=== PATIENT | female | born 1950 | race Caucasian/White ===

== ENCOUNTER 2024-01-11 06:42 | Inpatient (IN) | payer MEDICARE ==
[~2024-01-11] VITALS: Ht 165.1 cm; Wt 132.6 kg
[2024-01-11 08:03] LABS: DIFFERENTIAL COMMENT 1; HEMATOCRIT. 44.8 % (36.0-48.0); HEMOGLOBIN. 14.1 g/dL (12.0-16.0); MEAN CORPUSCULAR HEMOGLOBIN 27.4 pg (28.0-32.0); MEAN CORPUSCULAR HGB CONC 31.5 g/dL (31.0-37.0); MEAN CORPUSCULAR VOLUME 86.9 fL (81.0-99.0); MEAN PLATELET VOLUME 7.1 fl (7.4-10.4); PLATELET 364 x1000/uL (130-400); RED BLOOD CELL COUNT 5.16 mill/uL (4.2-5.4); RED CELL DISTRIBUTION WIDTH 16.7 % (11.6-14.6); WHITE BLOOD COUNT 20.7 x1000/uL (4.5-11.0)
[2024-01-11] MEDS: METOCLOPRAMIDE HCL 10MG/2ML VIAL IV ONE (08:06)
[2024-01-11 08:11] LABS: CHLORIDE 106 mEq/L (98-107); POTASSIUM 3.7 mEq/L (3.5-5.1); SODIUM 140 mEq/L (136-145)
[2024-01-11 08:12] LABS: CALCIUM 9.2 mg/dL (8.7-10.4); CARBON DIOXIDE 25 mEq/L (21-32)
[2024-01-11 08:17] LABS: CREATININE 1.4 mg/dL (0.6-1.0); GLUCOSE 229 mg/dL (70-105); TROPONIN I HIGH SENSITIVITY 17 ng/L (3.0-34); UREA NITROGEN BLOOD 20 mg/dL (9-23)
[2024-01-11 08:19] LABS: ALANINE AMINOTRANSFERASE 15 IU/L (10-49); ALBUMIN 4.3 g/dL (3.2-4.8); ASPARTATE AMINOTRANSFERASE 16 IU/L (<34); BILIRUBIN DIRECT 0.2 mg/dL (<=3.0); BILIRUBIN TOTAL 0.5 mg/dL (0.1-1.0)
[2024-01-11 08:20] LABS: PROTEIN TOTAL 7.4 g/dL (6.0-8.3)
[2024-01-11] MEDS: PIPERACILLIN/TAZO 3.375G/50ML 50 ML IV STA (10:16)
[2024-01-11] MEDS: SODIUM CHLORIDE 0.9% 500 ML IV ONE (10:16)
[2024-01-11] MEDS: ACETAMINOPHEN 325MG TABLET PO ONE (10:17)
[2024-01-11] MEDS: LABETALOL 5MG/ML 4ML INJ IV ONE (10:30)
[2024-01-11 10:41] LABS: ANISOCYTOSIS 1+; PLATELET ESTIMATE NORMAL
[2024-01-11 10:49] LABS: LACTIC ACID 2.2 mmol/L (0.4-2.0)
[2024-01-11] MEDS: VANCOMYCIN 1.5GM/250ML 250 ML IV SCH (11:04)
[2024-01-11 12:00] VITALS: BP 108/44; PULSE 93; RESP 18; TEMP 97.9
[2024-01-11 12:03] VITALS: BP 108/44; PULSE 93; RESP 18; TEMP 97.9
[2024-01-11] MEDS ORDERED: CLON0.1T MT (12:08)
[2024-01-11] MEDS ORDERED: CLOP-31 MT (12:08)
[2024-01-11] MEDS ORDERED: FURO40TA5 MT (12:08)
[2024-01-11] MEDS ORDERED: LEVVL SQ (12:08)
[2024-01-11] MEDS ORDERED: LOSA100T33 MT (12:08)
[2024-01-11] MEDS ORDERED: GABA-532 MT (12:08)
[2024-01-11] MEDS ORDERED: METO100T16 MT (12:08)
[2024-01-11] MEDS ORDERED: IPRATROPIUM/ALBUTEROL 0.5-3(2.5)MG/3ML NEB NEB PRN (13:30)
[2024-01-11] MEDS ORDERED: ACETAMINOPHEN 325MG TABLET PO PRN (13:30)
[2024-01-11] MEDS ORDERED: MAGNESIUM/ALUMINUM HYDROXIDE/SIMETHICONE 30ML UDC PO PRN (13:30)
[2024-01-11 13:39] LABS: HEPATITIS B SURFACE ANTIGEN NEGATIVE (Negative)
[2024-01-11 14:00] LABS: HEPATITIS C AB NON REACTIVE (Neg) (Negative)
[2024-01-11] MEDS: CEFTRIAXONE 1GM/50ML 50 ML IV SCH (15:17)
[2024-01-11] MEDS: ACETAMINOPHEN 325MG TABLET PO PRN (15:17)
[2024-01-11] MEDS: SODIUM CHLORIDE 0.9% 1,000 ML IV SCH (15:18)
[2024-01-11] MEDS: AZITHROMYCIN 500 MG TABLET PO SCH (15:18)
[2024-01-11] MEDS: ENOXAPARIN 40MG/0.4ML SYR SUBCUT SCH (15:19)
[2024-01-11 15:46] VITALS: BP 128/68; PULSE 103; RESP 20; TEMP 98.3
[2024-01-11] MEDS ORDERED: DEXTROSE 50% WATER 50ML SYRINGE IV PRN (16:15)
[2024-01-11] MEDS: BLOOD SUGAR DIAGNOSTIC STRIP TEST SCH (18:03)
[2024-01-11 20:00] VITALS: BP_SYST 116; BP_SYST 121; BP_DIAS 54; BP_DIAS 69; PULSE 103; PULSE 105; RESP 16; RESP 18; TEMP 98.5; TEMP 98.6
[2024-01-11] MEDS: INSULIN LISPRO 100 UNITS/ML SUBCUT SCH (21:28)
[2024-01-11] MEDS: INSULIN GLARGINE 100 UNITS/ML SUBCUT SCH (21:31)
[2024-01-12] VITALS: BP 121/69; PULSE 103; RESP 16; TEMP 98.5
[2024-01-12 04:00] VITALS: BP 130/60; PULSE 94; RESP 18; TEMP 98
[2024-01-12 07:09] LABS: HEMATOCRIT. 37.4 % (36.0-48.0); MEAN CORPUSCULAR HEMOGLOBIN 27.5 pg (28.0-32.0); MEAN CORPUSCULAR HGB CONC 32.1 g/dL (31.0-37.0); MEAN CORPUSCULAR VOLUME 85.8 fL (81.0-99.0); MEAN PLATELET VOLUME 7.6 fl (7.4-10.4); PLATELET 353 x1000/uL (130-400); RED BLOOD CELL COUNT 4.36 mill/uL (4.2-5.4); RED CELL DISTRIBUTION WIDTH 16.5 % (11.6-14.6); WHITE BLOOD COUNT 18.3 x1000/uL (4.5-11.0)
[2024-01-12 07:21] LABS: CARBON DIOXIDE 28 mEq/L (21-32); CHLORIDE 104 mEq/L (98-107); POTASSIUM 3.9 mEq/L (3.5-5.1); SODIUM 140 mEq/L (136-145)
[2024-01-12 07:22] LABS: CALCIUM 8.4 mg/dL (8.7-10.4)
[2024-01-12 07:26] LABS: GLUCOSE 148 mg/dL (70-105)
[2024-01-12 07:27] LABS: UREA NITROGEN BLOOD 31 mg/dL (9-23)
[2024-01-12 07:29] LABS: PHOSPHORUS 2.7 mg/dL (2.5-4.9)
[2024-01-12 07:32] LABS: CREATININE 2.1 mg/dL (0.6-1.0)
[2024-01-12 07:38] LABS: DIFFERENTIAL COMMENT 1
[2024-01-12 08:00] VITALS: BP 160/70; PULSE 98; RESP 20; TEMP 98
[2024-01-12] MEDS ORDERED: LIDOCAINE HCL 1% 10 MG/ML 10ML VIAL ONE (09:55)
[2024-01-12 14:42] LABS: PLATELET ESTIMATE NORMAL
[2024-01-12] MEDS: ONDANSETRON HCL 4MG/2ML INJ IV PRN (15:16)
[2024-01-12 16:00] VITALS: BP 149/69; PULSE 89; RESP 18; TEMP 98.2
[2024-01-12 20:00] VITALS: BP 136/48; PULSE 92; RESP 18; TEMP 99.9
[2024-01-13] VITALS: BP 152/74; PULSE 96; RESP 18; TEMP 98.1
[2024-01-13 04:00] VITALS: BP 150/63; PULSE 90; RESP 17; TEMP 97.6
[2024-01-13 07:33] LABS: HEMATOCRIT. 34.7 % (36.0-48.0); HEMOGLOBIN. 11.3 g/dL (12.0-16.0); MEAN CORPUSCULAR HEMOGLOBIN 27.4 pg (28.0-32.0); MEAN CORPUSCULAR HGB CONC 32.5 g/dL (31.0-37.0); MEAN CORPUSCULAR VOLUME 84.4 fL (81.0-99.0); MEAN PLATELET VOLUME 7.7 fl (7.4-10.4); PLATELET 293 x1000/uL (130-400); RED BLOOD CELL COUNT 4.11 mill/uL (4.2-5.4); RED CELL DISTRIBUTION WIDTH 16.4 % (11.6-14.6); WHITE BLOOD COUNT 16.5 x1000/uL (4.5-11.0)
[2024-01-13 07:41] LABS: CREATININE 1.9 mg/dL (0.6-1.0)
[2024-01-13 07:55] LABS: DIFFERENTIAL COMMENT 1
[2024-01-13 08:00] VITALS: BP 141/58; PULSE 95; RESP 18; TEMP 97.5
[2024-01-13 11:55] LABS: ANISOCYTOSIS 1+; PLATELET ESTIMATE NORMAL
[2024-01-13 12:00] VITALS: BP 148/58; PULSE 79; RESP 18; TEMP 97.1
[2024-01-13] MEDS: ENOXAPARIN 40MG/0.4ML SYR SUBCUT SCH (12:19)
[2024-01-13 16:00] VITALS: BP 138/85; PULSE 105; RESP 18; TEMP 97
[2024-01-13 17:51] LABS: CLARITY URINE CLOUDY (CLEAR); COLOR URINE YELLOW (YELLOW); GLUCOSE URINE NEGATIVE (NEGATIVE); KETONES URINE NEGATIVE (NEGATIVE); LEUKOCYTE ESTERASE URINE NEGATIVE (NEGATIVE); NITRITE URINE NEGATIVE (NEGATIVE); OCCULT BLOOD URINE 1+ (NEGATIVE); PH URINE 5.5 (4.5-8.0); PROTEIN URINE 2+ (NEGATIVE); SPECIFIC GRAVITY URINE 1.018 (1.005-1.030); UROBILINOGEN URINE 0.2 E.U./dL (0.2-1.0)
[2024-01-13 17:59] LABS: CREATININE URINE RANDOM 174.9 mg/dL
[2024-01-13] MEDS ORDERED: SODIUM CHLORIDE 10% FOR INH 15ML NEB INH SCH (18:00)
[2024-01-13 18:10] LABS: BACTERIA URINE 2+; RBC URINE 0-2 /hpf (0-2); SQUAMOUS EPITHELIAL CELL URINE 2+ /lpf (RARE/1+)
[2024-01-13 18:11] LABS: YEAST URINE 1+
[2024-01-13 20:00] VITALS: BP 133/55; PULSE 87; RESP 18; TEMP 97.7
[2024-01-13] MEDS: VANCOMYCIN 1G PREMIX 200 ML IV NR (20:50)
[2024-01-13] MEDS ORDERED: DOXYCYCLINE HYCLATE 100MG CAPSULE PO SCH (21:00)
[2024-01-13] MEDS: METRONIDAZOLE 500MG TABLET PO SCH (21:18)
[2024-01-14] VITALS (7 sets, daily range): BP systolic 122–150; BP diastolic 55–78; PULSE 78–89; RESP 18; TEMP 97–97.8
[2024-01-14] MEDS ORDERED: NALOXONE HCL 0.4MG/ML VIAL IV PRN (03:15)
[2024-01-14] MEDS: HYDROCODONE/ACETAMINOPHEN 5/325MG TABLET PO PRN (06:08)
[2024-01-14 06:24] LABS: HEMATOCRIT. 36.1 % (36.0-48.0); HEMOGLOBIN. 11.2 g/dL (12.0-16.0); MEAN CORPUSCULAR HEMOGLOBIN 26.9 pg (28.0-32.0); MEAN CORPUSCULAR HGB CONC 31.1 g/dL (31.0-37.0); MEAN CORPUSCULAR VOLUME 86.6 fL (81.0-99.0); MEAN PLATELET VOLUME 7.5 fl (7.4-10.4); PLATELET 254 x1000/uL (130-400); RED BLOOD CELL COUNT 4.17 mill/uL (4.2-5.4); RED CELL DISTRIBUTION WIDTH 16.4 % (11.6-14.6); WHITE BLOOD COUNT 13.1 x1000/uL (4.5-11.0)
[2024-01-14 06:41] LABS: CALCIUM 8.5 mg/dL (8.7-10.4)
[2024-01-14 07:33] LABS: DIFFERENTIAL COMMENT 1
[2024-01-14] MEDS: SODIUM CHLORIDE 0.9% 1,000 ML IV SCH (08:06)
[2024-01-14] MEDS: VANCOMYCIN 1.5GM/250ML IV NR (09:46)
[2024-01-14 10:38] LABS: PLATELET ESTIMATE NORMAL
[2024-01-14] MEDS: SODIUM CHLORIDE 0.45% 1,000 ML IV SCH (14:28)
[2024-01-14] MEDS ORDERED: MAGNESIUM/ALUMINUM HYDROXIDE/SIMETHICONE 30ML UDC PO PRN (16:15)
[2024-01-14] MEDS ORDERED: FAMOTIDINE 20MG/2ML VIAL IV SCH (21:00)
[2024-01-14] MEDS: FAMOTIDINE 20MG/2ML VIAL IV SCH (21:53)
[2024-01-14] MEDS: IPRATROPIUM/ALBUTEROL 0.5-3(2.5)MG/3ML NEB NEB SCH (22:12)
[2024-01-15] VITALS (10 sets, daily range): BP systolic 130–173; BP diastolic 63–86; PULSE 73–91; RESP 18–22; TEMP 97.4–99.1
[2024-01-15] MEDS: CLONIDINE 0.1MG TABLET PO PRN (00:30)
[2024-01-15 06:19] LABS: POTASSIUM 4.1 mEq/L (3.5-5.1)
[2024-01-15 06:20] LABS: HEMATOCRIT. 34.5 % (36.0-48.0); MEAN CORPUSCULAR HEMOGLOBIN 27.2 pg (28.0-32.0); MEAN CORPUSCULAR HGB CONC 31.8 g/dL (31.0-37.0); MEAN CORPUSCULAR VOLUME 85.4 fL (81.0-99.0); MEAN PLATELET VOLUME 7.9 fl (7.4-10.4); PLATELET 282 x1000/uL (130-400); RED BLOOD CELL COUNT 4.04 mill/uL (4.2-5.4); RED CELL DISTRIBUTION WIDTH 16.6 % (11.6-14.6); WHITE BLOOD COUNT 9.7 x1000/uL (4.5-11.0)
[2024-01-15 06:21] LABS: CALCIUM 8.7 mg/dL (8.7-10.4)
[2024-01-15 06:25] LABS: CREATININE 1.7 mg/dL (0.6-1.0)
[2024-01-15 06:34] LABS: DIFFERENTIAL COMMENT 1
[2024-01-15 11:21] LABS: ANISOCYTOSIS 1+; PLATELET ESTIMATE NORMAL
[2024-01-15] MEDS: VANCOMYCIN 1.5GM/250ML IV NR (14:12)
[2024-01-15] MEDS: FLUCONAZOLE 150MG TABLET PO SCH (16:06)
[2024-01-15] MEDS: FLUTICASONE/VILANTEROL 200-25 BLST.W.DEV ORI SCH (17:07)
[2024-01-16] VITALS (7 sets, daily range): BP systolic 129–156; BP diastolic 46–156; PULSE 78–92; RESP 18–20; TEMP 97.7–99.5; O2SAT 69
[2024-01-16 07:17] LABS: CALCIUM 9.5 mg/dL (8.7-10.4)
[2024-01-16 07:22] LABS: CREATININE 1.6 mg/dL (0.6-1.0)
[2024-01-16 07:45] LABS: EOSINOPHILS % 2.3 % (0.0-5.0); HEMATOCRIT. 36.3 % (36.0-48.0); HEMOGLOBIN. 11.5 g/dL (12.0-16.0); LYMPHOCYTES % 8.2 % (20.0-50.0); MEAN CORPUSCULAR HEMOGLOBIN 27.1 pg (28.0-32.0); MEAN CORPUSCULAR HGB CONC 31.6 g/dL (31.0-37.0); MEAN CORPUSCULAR VOLUME 85.9 fL (81.0-99.0); MONOCYTES % 6.3 % (2.0-8.0); NEUTROPHILS % 82.2 % (40.0-76.0); RED BLOOD CELL COUNT 4.23 mill/uL (4.2-5.4); RED CELL DISTRIBUTION WIDTH 16.6 % (11.6-14.6)
[2024-01-16 07:57] LABS: DIFFERENTIAL COMMENT 1
[2024-01-16] MEDS ORDERED: FLUC150T46 PO (10:16)
[2024-01-16] MEDS ORDERED: SULF1TAB48 PO (10:16)
[2024-01-16] MEDS ORDERED: LEVO750T68 PO (10:16)
[2024-01-16] MEDS: CLOPIDOGREL 75MG TABLET PO SCH (11:29)
[2024-01-16] MEDS: METOPROLOL TARTRATE 100MG TABLET PO SCH (11:29)
[2024-01-16] MEDS ORDERED: VANCOMYCIN 1.5GM/250ML IV SCH (21:00)
[2024-01-19] MEDS ORDERED: ENOXAPARIN 30MG/0.3ML SYR SUBCUT SCH (09:00)
== END 2024-01-16 14:40 | disposition home or self-care (01) | DRG 871 ==
LOC: ER 06:42 → 7WST 10:36 → EDBEDREQ 10:37 → EDBEDREQTM 10:37
PROVIDERS: ADMIT Internal Medicine; ATTEND Internal Medicine
PROC: 02HV33Z Insertion of Infusion Device into Superior Vena Cava, Percutaneous Approach (ICD-10-PCS; principal; 2024-01-12)
PROC: B548ZZA Ultrasonography of Superior Vena Cava, Guidance (ICD-10-PCS; 2024-01-12)
DX: A41.9 Sepsis, unspecified organism (principal); J69.0 Pneumonitis due to inhalation of food and vomit; J96.01 Acute respiratory failure with hypoxia; J68.0 Bronchitis and pneumonitis due to chemicals, gases, fumes and vapors; I13.0 Hypertensive heart and chronic kidney disease with heart failure and stage 1 through stage 4 chronic kidney disease, or unspecified chronic kidney disease; N17.9 Acute kidney failure, unspecified; L03.115 Cellulitis of right lower limb; N39.0 Urinary tract infection, site not specified; Z68.42 Body mass index [BMI] 45.0-49.9, adult; E11.22 Type 2 diabetes mellitus with diabetic chronic kidney disease; R65.20 Severe sepsis without septic shock; N18.9 Chronic kidney disease, unspecified; I50.9 Heart failure, unspecified; B37.31 Acute candidiasis of vulva and vagina; K21.9 Gastro-esophageal reflux disease without esophagitis; I89.0 Lymphedema, not elsewhere classified; Z85.118 Personal history of other malignant neoplasm of bronchus and lung; E11.21 Type 2 diabetes mellitus with diabetic nephropathy; E66.9 Obesity, unspecified
CPT/HCPCS: 36415; 36573; 71045; 71250; 76770; 80048; 80076; 80202; 81003; 82570; 82962; 83036; 83605; 83735; 83880; 84100; 84145; 84300; 84484; 85025; 85379; 86705; 87340; 93005; 93306; 93970; 94640; 99291; C1725; J0696; J1650; J1815; J2405; J2543; J2765; J3370; J3490; J7030; J7040; J7131